=== PATIENT | female | born 1970 | race Hispanic/Latino ===

== ENCOUNTER → 2020-01-21 | Day surgery (SDC) | payer BC ==
[2020-01-17 14:35] LABS: BASOPHILS % 0.5 % (0.0-1.0); EOSINOPHILS # (AUTO) 0.1 (0.0-0.4); HEMATOCRIT 37.2 % (34.2-44.1); HEMOGLOBIN 12.5 g/dL (12.0-16.0); LYMPHOCYTES # (AUTO) 2.1 (1.0-3.2); LYMPHOCYTES % 34.6 % (18.0-39.1); MEAN CORPUSCULAR HEMOGLOBIN 30.3 pg (28-32); MEAN CORPUSCULAR HGB CONC 33.6 g/dL (31-35); MEAN CORPUSCULAR VOLUME 90.1 fL (81-99); MONOCYTES # (AUTO) 0.4 (0.2-0.8); MONOCYTES % 5.9 % (4.4-11.3); NEUTROPHILS # (AUTO) 3.5 (2.1-6.9); NEUTROPHILS % 57.8 % (38.7-80.0); PLATELET COUNT 193 x10e3/uL (140-360); RED BLOOD COUNT 4.13 x10e6/uL (3.6-5.1)
[2020-01-17 16:16] LABS: ALANINE AMINOTRANSFERASE 15 IU/L (0-55); ALBUMIN 4.3 g/dL (3.5-5.0); ALBUMIN/GLOBULIN RATIO 1.3 (0.8-2.0); ALKALINE PHOSPHATASE 82 IU/L (40-150); ANION GAP 10.9 mmol/L (8-16); BLOOD UREA NITROGEN 8 mg/dL (7-26); BUN/CREATININE RATIO 10 (6-25); CALCIUM 9.4 mg/dL (8.4-10.2); CARBON DIOXIDE 27 mmol/L (22-29); CHLORIDE 103 mmol/L (98-107); CREATININE, SERUM 0.77 mg/dL (0.57-1.11); EST GLOMERULAR FILTRATION RATE > 60 ML/MIN (60-); POTASSIUM 3.9 mmol/L (3.5-5.1); SODIUM 137 mmol/L (136-145)
[2020-01-17 17:12] LABS: GLUCOSE 117 mg/dL (74-118)
[~2020-01-21] MED LIST: ACETAMINOPHEN/CODEINE 300MG - 30MG TAB ONE; ADDERALL 30 MG30 MG PO; AMBIEN10 MG PO; AMITRIPTYLINE H10 MG PO; B-121000 MCG PO; BUPIVACAINE 0.25%/EPI 30ML SDV INJ ONE; CELEBREX200 MG PO; CELEXA40 MG PO; CLONIDINE HCL0.2 MG PO; CRESTOR10 MG PO; CYCLOBENZAPRINE10 MG PO; D-AMPHETAMINE PO; DEXAMETHASONE SOD PHOS INJ 4 MG/ML VIAL ONE; ESTROGENS CONJUGATED VAGINAL CR 45 GM TUBE PV ONE; ETOMIDATE 2 MG/ML 10 ML INJ IV ONE; FENTANYL CITRATE/PF 100MCG/2 ML INJ ONE; JANUMET XR 50-1 EACH PO; KETOROLAC TROMETHAMINE 30 MG/ML VIAL ONE; LINZESS145 MCG PO; LISINOPRIL2.5 MG PO; LORAZEPAM2 MG PO; MEPERIDINE HCL INJ 25 MG/ML VIAL ONE; MIDAZOLAM HCL 2 MG/2 ML VIAL ONE; ONDANSETRON HCL INJ 2MG/ML 2ML 2 MG/ML VIAL ONE; PHENTERMINE H37.5 MG PO; PRAVASTATIN SOD40 MG PO; PREMARIN0.3 MG PO; SEVOFLURANE INHAL SOLN 250 ML PEN BTL ONE; SYNJARDY 12.5-1 EAC1 PO; TRAZODONE HCL150 MG PO; TRIAZOLAM0.25 MG PO; TRULICITY1.5 MG/0.5 INJ; VIT D3 PO
[2020-01-21 11:20] VITALS: BP 120/75
--- NOTE | 2020-01-21 14:32 | Operative Report ---
DATE OF PROCEDURE: SURGEON: Mell Mclaughlin MD PREOPERATIVE DIAGNOSIS: Cystocele and vault prolapse. POSTOPERATIVE DIAGNOSIS: Cystocele and vault prolapse. PROCEDURE: Anterior repair and sacrospinous colpopexy. COMPLICATIONS: None. ESTIMATED BLOOD LOSS: Minimal. DESCRIPTION OF PROCEDURE: The patient was taken to the OR. General anesthesia was induced. She was prepped and draped in a normal sterile fashion, placed in dorsal lithotomy position. After examination under anesthesia, two Allis clamps were applied to the vaginal vault. Some vaginal tissue was injected anteriorly with Marcaine with epinephrine 0.25%, 20 mL was used. Transverse skin incision was made with a scalpel at the vaginal vault and vagina dissected off the bladder using Metzenbaum scissors using the push spread technique and opened in the midline using the same instruments. Two flaps of vagina dissected overlying muscle using both sharp and blunt dissection. Following this, using the index finger ischial spine and sacrospinous ligaments were palpated. The same was repeated on the other side. A Capio Vicryl suture was placed on the sacrospinous ligament on each side and was stitched to the vaginal vault. Pubocervical ligaments on each side approximated using Vicryl 0 stitch and excess vaginal skin was trimmed off using curved Forman scissors. The vagina was closed with interlocking stitches of Vicryl 0. The sacrospinous ligaments were attached to the vaginal vault and tied and the vaginal vault was lifted. A rubber catheter was placed inside the bladder and revealed clear urine. Vaginal pack was inserted to be removed in 1 hour. The patient tolerated the procedure well. Lap, instruments, and needle counts were correct x2 at the end of the procedure. Mell Mclaughlin MD DD/MODL /[id number]
== END | disposition home or self-care (01) ==
LOC: OR 06:50
PROVIDERS: ATTEND Obstetrics & Gynecology
DX: N81.4 Uterovaginal prolapse, unspecified (principal); E11.9 Type 2 diabetes mellitus without complications; I10 Essential (primary) hypertension; E78.5 Hyperlipidemia, unspecified; E78.00 Pure hypercholesterolemia, unspecified; Z01.810 Encounter for preprocedural cardiovascular examination; Z01.812 Encounter for preprocedural laboratory examination; Z11.59 Encounter for screening for other viral diseases; Z79.84 Long term (current) use of oral hypoglycemic drugs
CPT/HCPCS: 36415 ×2; 57240; 80053; 82948; 85025; 87635; 93005; J1100; J1885; J2175; J2250; J2405; J3010

== ENCOUNTER → 2020-03-10 | Day surgery (SDC) | payer BC, OTHER ==
[2020-03-05 16:28] LABS: BASOPHILS % 0.4 % (0.0-1.0); EOSINOPHILS # (AUTO) 0.1 (0.0-0.4); EOSINOPHILS % 1.4 % (0.0-6.0); HEMATOCRIT 36.3 % (34.2-44.1); HEMOGLOBIN 12.2 g/dL (12.0-16.0); LYMPHOCYTES # (AUTO) 2.4 (1.0-3.2); LYMPHOCYTES % 32.6 % (18.0-39.1); MEAN CORPUSCULAR HEMOGLOBIN 30.4 pg (28-32); MEAN CORPUSCULAR HGB CONC 33.6 g/dL (31-35); MEAN CORPUSCULAR VOLUME 90.5 fL (81-99); MONOCYTES # (AUTO) 0.5 (0.2-0.8); MONOCYTES % 6.3 % (4.4-11.3); NEUTROPHILS # (AUTO) 4.3 (2.1-6.9); PLATELET COUNT 224 x10e3/uL (140-360); RED BLOOD COUNT 4.01 x10e6/uL (3.6-5.1); RED CELL DISTRIBUTION WIDTH 12.2 % (11.7-14.4)
[2020-03-05 16:49] LABS: ANION GAP 11.5 mmol/L (8-16); BLOOD UREA NITROGEN 9 mg/dL (7-26); BUN/CREATININE RATIO 13 (6-25); CALCIUM 9.3 mg/dL (8.4-10.2); CARBON DIOXIDE 25 mmol/L (22-29); CHLORIDE 105 mmol/L (98-107); CREATININE, SERUM 0.67 mg/dL (0.57-1.11); EST GLOMERULAR FILTRATION RATE > 60 ML/MIN (60-); GLUCOSE 84 mg/dL (74-118); POTASSIUM 3.5 mmol/L (3.5-5.1); SODIUM 138 mmol/L (136-145)
[~2020-03-10] MED LIST changes: +BUPIVACAINE 0.25% 30ML SDV INJ ONE; -DEXAMETHASONE SOD PHOS INJ 4 MG/ML VIAL ONE; -ETOMIDATE 2 MG/ML 10 ML INJ IV ONE; -FENTANYL CITRATE/PF 100MCG/2 ML INJ ONE; +LIDOCAINE HCL 2% LOCAL INJ 5 ML SDV VIAL INJ ONE; -MEPERIDINE HCL INJ 25 MG/ML VIAL ONE; -MIDAZOLAM HCL 2 MG/2 ML VIAL ONE; +PROPOFOL IV EMULSION 10 MG/ML 20 ML VIAL ONE
--- NOTE | 2020-03-10 11:28 | Operative Report ---
DATE OF PROCEDURE: SURGEON: Mell Mclaughlin MD PREOPERATIVE DIAGNOSIS: Cystourethrocele. POSTOPERATIVE DIAGNOSIS: Cystourethrocele. PROCEDURE: Anterior repair. COMPLICATIONS: None. ESTIMATED BLOOD LOSS: Minimal. DESCRIPTION OF PROCEDURE: The patient is status post anterior repair and sacrospinous colpopexy over two months ago and showed signs of urethrocele mainly vault suspension is adequate. Incision was made to carry on with anterior repair. A weighed speculum was placed inside the vagina. The vaginal vault was held with two Allis clamps. The anterior wall was injected with Marcaine with epi 0.25% and scalpel was used to open the vaginal vault. Anterior wall was from the bladder using Metzenbaum scissors. The anterior wall was opened in the midline using the same instrument. The bladder was dissected off the vagina using both sharp and blunt dissection. Gentle sweeps of [place] wrapped on the index finger. The anterior wall of the vagina was completely and Vicryl 0 suture was used to approximate the pubocervical ligaments. Excess vaginal skin was trimmed off using curved Forman scissors. The vagina was closed with 2-0 Vicryl continuous stitch. Vaginal pack was inserted and Connors catheter which showed clear urine. The patient tolerated the procedure well. Lap, instruments, and needle counts were correct x2 at the end of procedure. Mell Mclaughlin MD DD/ROBERT /[id number]
[2020-03-10 12:00] VITALS: BP 94/61
== END | disposition home or self-care (01) ==
LOC: OR 05:44
PROVIDERS: ATTEND Obstetrics & Gynecology
DX: N81.10 Cystocele, unspecified (principal); N95.9 Unspecified menopausal and perimenopausal disorder; E78.00 Pure hypercholesterolemia, unspecified; E78.5 Hyperlipidemia, unspecified; I10 Essential (primary) hypertension; E11.9 Type 2 diabetes mellitus without complications; F90.9 Attention-deficit hyperactivity disorder, unspecified type; Z91.018 Allergy to other foods; Z01.810 Encounter for preprocedural cardiovascular examination; Z01.812 Encounter for preprocedural laboratory examination; Z11.59 Encounter for screening for other viral diseases; Z79.84 Long term (current) use of oral hypoglycemic drugs
CPT/HCPCS: 36415; 57240; 80048; 85025; 93005; J1885; J2001; J2405; J2704; U0002

== ENCOUNTER → 2021-02-02 | Day surgery (SDC) | payer BC ==
[2021-01-29 12:09] LABS: BASOPHILS # (AUTO) 0.1 (0.0-0.1); BASOPHILS % 0.6 % (0.0-1.0); EOSINOPHILS # (AUTO) 0.2 (0.0-0.4); EOSINOPHILS % 2.1 % (0.0-6.0); HEMATOCRIT 37.9 % (34.2-44.1); HEMOGLOBIN 12.1 g/dL (12.0-16.0); LYMPHOCYTES # (AUTO) 2.5 (1.0-3.2); LYMPHOCYTES % 31.2 % (18.0-39.1); MEAN CORPUSCULAR HEMOGLOBIN 28.7 pg (28-32); MEAN CORPUSCULAR HGB CONC 31.9 g/dL (31-35); MONOCYTES # (AUTO) 0.6 (0.2-0.8); MONOCYTES % 7.7 % (4.4-11.3); NEUTROPHILS # (AUTO) 4.6 (2.1-6.9); NEUTROPHILS % 57.9 % (38.7-80.0); PLATELET COUNT 235 x10e3/uL (140-360); RED BLOOD COUNT 4.21 x10e6/uL (3.6-5.1); RED CELL DISTRIBUTION WIDTH 13.2 % (11.7-14.4)
[2021-01-29 12:33] LABS: ANION GAP 14.9 mmol/L (8-16); CALCIUM 9.4 mg/dL (8.4-10.2); CREATININE, SERUM 0.68 mg/dL (0.57-1.11); POTASSIUM 3.9 mmol/L (3.5-5.1)
[~2021-02-02] MED LIST changes: +ACETAMINOPHEN 1000 MG/100 ML 100 ML IV ONE; -ACETAMINOPHEN/CODEINE 300MG - 30MG TAB ONE; -BUPIVACAINE 0.25% 30ML SDV INJ ONE; -BUPIVACAINE 0.25%/EPI 30ML SDV INJ ONE; +BUPIVACAINE HCL 0.5% INJ 30 ML VIAL INJ ONE; +DEXAMETHASONE SOD PHOS INJ 4 MG/ML VIAL ONE; +DIM SGS PO; +DOXEPIN HCL25 MG PO; +ESTRADIOL1 MG PO; +FAMOTIDINE40 MG PO; +FENTANYL CITRATE/PF 100MCG/2 ML INJ ONE; +IODINE PLUS PO; -KETOROLAC TROMETHAMINE 30 MG/ML VIAL ONE; +LIDOCAINE 1% W/EPINEPHRINE 20 ML VIAL ONE; +MIDAZOLAM HCL 2 MG/2 ML VIAL ONE; +POVIDONE IODINE 0.05% 0.05 % ML PO ONE
[2021-02-02 14:30] VITALS: BP 110/62
== END | disposition home or self-care (01) ==
LOC: OR 08:05
PROVIDERS: ATTEND Obstetrics & Gynecology
DX: N81.11 Cystocele, midline (principal); E11.9 Type 2 diabetes mellitus without complications; I10 Essential (primary) hypertension; E78.5 Hyperlipidemia, unspecified; R12 Heartburn; R20.0 Anesthesia of skin; R20.2 Paresthesia of skin; M19.90 Unspecified osteoarthritis, unspecified site; Z91.018 Allergy to other foods; Z01.810 Encounter for preprocedural cardiovascular examination; Z01.812 Encounter for preprocedural laboratory examination; Z79.84 Long term (current) use of oral hypoglycemic drugs; Z86.16 Personal history of COVID-19
CPT/HCPCS: 36415 ×2; 57240; 80048; 82948; 85025; 93005; J0131; J1100; J2001; J2250; J2405; J2704; J3010